=== PATIENT | female | born 1945 | race African-American/Black ===

== ENCOUNTER 2017-05-08 09:52 | Inpatient (IN) | payer SELFPAY ==
[~2017-05-08] VITALS: Ht 170.2 cm; Wt 138.3 kg
[2017-05-08] MEDS ORDERED: EPINEPHRINE 1:1000 1 MG/ML AMP ONE (10:31)
[2017-05-08] MEDS ORDERED: METHYLENE BLUE 50 MG/10 ML AMP IV ONE (10:31)
[2017-05-08] MEDS ORDERED: BACITRACIN 50,000 UNITS/VIAL ONE (10:32)
[2017-05-08] MEDS ORDERED: BUPIVACAINE HCL/EPINEPHRINE/PF 0.5%/0.0005 10ML ONE ×2 (10:32→12:25)
[2017-05-08] MEDS ORDERED: NORMAL SALINE 0.9% 10 ML SYR ONE (10:32)
[2017-05-08] MEDS ORDERED: WARF4TAB40 PO (12:26)
[2017-05-08 12:38] LABS: PROTHROMBIN TIME 10.8 sec (9.4-11.6)
[2017-05-08] MEDS ORDERED: TRANEXAMIC ACID 1,000 MG in SODIUM CHLORIDE 0.9% 100 ML IV NR (12:45)
[2017-05-08] MEDS ORDERED: FENTANYL CITRATE/PF 50MCG/ML 2ML VIAL ONE (12:52)
[2017-05-08] MEDS ORDERED: MIDAZOLAM HCL 2 MG/2 ML VIAL ONE (12:53)
[2017-05-08] MEDS ORDERED: CEFAZOLIN SODIUM 1000MG/VIAL ONE (12:53)
[2017-05-08] MEDS ORDERED: ROPIVACAINE HCL 10MG/ML 20 ML VIAL EPI ONE (12:59)
[2017-05-08] MEDS ORDERED: DIPHENHYDRAMINE 50MG/ML VIAL ONE (14:44)
[2017-05-08] MEDS ORDERED: MORPHINE SULFATE/PF 1MG/ML 10ML AMP ONE (15:09)
[2017-05-08] MEDS ORDERED: ACETAMINOPHEN 325MG TABLET PO PRN (17:00)
[2017-05-08] MEDS ORDERED: HYDROCODONE/ACETAMINOPHEN 10/325MG TABLET PO PRN (17:00)
[2017-05-08] MEDS ORDERED: ONDANSETRON HCL 4MG/2ML VIAL IV PRN (17:00)
[2017-05-08] MEDS ORDERED: ONDANSETRON INJ IV PRN (18:15)
[2017-05-08] MEDS ORDERED: NALOXONE INJ IV PRN (18:15)
[2017-05-08] MEDS ORDERED: DIPHENHYDRAMINE INJ IV PRN (18:15)
[2017-05-08] MEDS ORDERED: MORPHINE PCA 50MG/50ML IV PRN (18:15)
[2017-05-08 19:24] LABS: HEMATOCRIT. 36.7 % (36.0-48.0); HEMOGLOBIN. 12.2 g/dL (12.0-16.0); MEAN CORPUSCULAR HEMOGLOBIN 27.8 pg (28.0-32.0); MEAN CORPUSCULAR VOLUME 83.5 fL (81.0-99.0); PLATELET 214 x1000/uL (130-400); RED CELL DISTRIBUTION WIDTH 15.9 % (11.6-14.6)
[2017-05-08 19:31] LABS: PARTIAL THROMBOPLASTIN TIME 23.8 sec (23.4-31.0); PROTHROMBIN TIME 10.9 sec (9.4-11.6)
[2017-05-08 19:51] LABS: PLATELET ESTIMATE NORMAL
[2017-05-08 20:06] LABS: CHLORIDE 108 mEq/L (98-107)
[2017-05-08 20:10] LABS: PHOSPHORUS 3.4 mg/dL (2.5-4.9)
[2017-05-08 20:45] VITALS: BP 122/67
[2017-05-08] MEDS: CEFAZOLIN 2,000 MG in DEXT 5% WATER 100 ML IV SCH (23:43)
[2017-05-09] VITALS: BP 122/61
[2017-05-09 04:00] VITALS: BP 129/65
[2017-05-09] MEDS: CEFAZOLIN 2,000 MG in DEXT 5% WATER 100 ML IV SCH (06:15)
[2017-05-09 06:57] LABS: BASOPHILS % 0.2 % (0.0-2.0); EOSINOPHILS % 0.1 % (0.0-5.0); HEMATOCRIT. 34.8 % (36.0-48.0); HEMOGLOBIN. 11.5 g/dL (12.0-16.0); LYMPHOCYTES % 13.9 % (20.0-50.0); MEAN CORPUSCULAR HEMOGLOBIN 27.4 pg (28.0-32.0); MEAN CORPUSCULAR VOLUME 83.1 fL (81.0-99.0); MEAN PLATELET VOLUME 8.6 fl (7.4-10.4); MONOCYTES % 11.6 % (2.0-8.0); NEUTROPHILS % 74.2 % (40.0-76.0); PLATELET 197 x1000/uL (130-400); RED BLOOD CELL COUNT 4.19 mill/uL (4.2-5.4); RED CELL DISTRIBUTION WIDTH 16.1 % (11.6-14.6)
[2017-05-09 07:28] LABS: CHLORIDE 106 mEq/L (98-107)
[2017-05-09 07:58] VITALS: BP 129/70
[2017-05-09] MEDS ORDERED: MAGNESIUM HYDROXIDE 400MG/5ML 30ML UDC PO PRN (09:00)
[2017-05-09] MEDS ORDERED: ENOXAPARIN 30MG/0.3ML SYR SUBCUT SCH ×2 (09:00→15:15)
[2017-05-09] MEDS: DOCUSATE SODIUM 100MG CAPSULE PO SCH ×2 (10:32→17:03)
[2017-05-09] MEDS: FERROUS SULFATE 325MG TABLET PO SCH ×3 (10:32→17:03)
[2017-05-09] MEDS: HYDROCODONE/ACETAMINOPHEN 10/325MG TABLET PO PRN ×3 (11:16→20:38)
[2017-05-09] MEDS ORDERED: ENOXAPARIN 150MG/ML SYR SUBCUT SCH ×2 (12:00→15:00)
[2017-05-09 12:09] VITALS: BP 135/63
[2017-05-09 16:09] VITALS: BP 130/55
[2017-05-09] MEDS ORDERED: WARFARIN SODIUM 4MG TABLET PO SCH (18:00)
[2017-05-09 20:00] VITALS: BP 121/56
[2017-05-09] MEDS: ZOLPIDEM TARTRATE 5MG TABLET PO PRN (23:09)
[2017-05-10] VITALS (7 sets, daily range): BP systolic 103–153; BP diastolic 50–77
[2017-05-10] MEDS: ENOXAPARIN 40MG/0.4ML SYR SUBCUT SCH ×2 (05:46→18:10)
[2017-05-10] MEDS: FERROUS SULFATE 325MG TABLET PO SCH ×3 (08:01→17:15)
[2017-05-10] MEDS: DOCUSATE SODIUM 100MG CAPSULE PO SCH ×2 (08:01→17:15)
[2017-05-10] MEDS: HYDROCODONE/ACETAMINOPHEN 10/325MG TABLET PO PRN ×3 (08:02→18:09)
[2017-05-10] MEDS: ZOLPIDEM TARTRATE 5MG TABLET PO PRN (21:51)
[2017-05-11 04:00] VITALS: BP 130/59
[2017-05-11] MEDS: ENOXAPARIN 40MG/0.4ML SYR SUBCUT SCH ×2 (06:33→17:07)
[2017-05-11] MEDS: HYDROCODONE/ACETAMINOPHEN 10/325MG TABLET PO PRN ×3 (06:36→17:03)
[2017-05-11 08:00] VITALS: BP 110/55
[2017-05-11] MEDS: FERROUS SULFATE 325MG TABLET PO SCH ×3 (09:13→17:06)
[2017-05-11] MEDS: DOCUSATE SODIUM 100MG CAPSULE PO SCH ×2 (09:13→17:06)
[2017-05-11 10:04] LABS: BASOPHILS % 0.2 % (0.0-2.0); EOSINOPHILS % 0.3 % (0.0-5.0); HEMATOCRIT. 31.4 % (36.0-48.0); HEMOGLOBIN. 10.5 g/dL (12.0-16.0); LYMPHOCYTES % 18.8 % (20.0-50.0); MEAN CORPUSCULAR HEMOGLOBIN 27.9 pg (28.0-32.0); MEAN CORPUSCULAR VOLUME 83.3 fL (81.0-99.0); MEAN PLATELET VOLUME 8.6 fl (7.4-10.4); MONOCYTES % 12.8 % (2.0-8.0); NEUTROPHILS % 67.9 % (40.0-76.0); PLATELET 181 x1000/uL (130-400); RED BLOOD CELL COUNT 3.76 mill/uL (4.2-5.4); RED CELL DISTRIBUTION WIDTH 15.3 % (11.6-14.6)
[2017-05-11 12:00] VITALS: BP 116/67
[2017-05-11] MEDS ORDERED: HYDROCODONE/ACETAMINOPHEN 10/325MG TABLET PO NR (14:10)
[2017-05-11 16:00] VITALS: BP 114/58
[2017-05-11 19:21] VITALS: BP 114/58
[2017-05-11 20:00] VITALS: BP 128/59
== END 2017-05-11 21:00 | disposition home or self-care (01) | DRG 302 ==
LOC: ORIP 09:52 → 6WST 22:37
PROVIDERS: ADMIT Orthopaedic Surgery; ATTEND Internal Medicine
PROC: 0SRD0J9 Replacement of Left Knee Joint with Synthetic Substitute, Cemented, Open Approach (ICD-10-PCS; principal; 2017-05-08 12:30)
DX: M17.12 Unilateral primary osteoarthritis, left knee (principal); E66.9 Obesity, unspecified; G89.29 Other chronic pain; M21.069 Valgus deformity, not elsewhere classified, unspecified knee; M65.9 Synovitis and tenosynovitis, unspecified; Z86.711 Personal history of pulmonary embolism; Z90.710 Acquired absence of both cervix and uterus; Z68.41 Body mass index [BMI] 40.0-44.9, adult
CPT/HCPCS: 36415; 73560; 80048; 80053; 82962; 83735; 84100; 85007; 85025; 85027; 85610; 85730; 86850; 86900; 86920; 88305; 88311; 93005; 93970; 97110; 97116; 97162; 97166; 97530; 97535; A4216; J0171; J0690; J1200; J1650; J2250; J2270; J2274; J2405; J2795; J3010; J3490; J7030; J7050; J7060; Q9968